=== PATIENT | female | born 1970 | race Caucasian/White ===

== ENCOUNTER 2018-05-14 08:55 | Emergency (ER) | payer MEDICARE, MEDICAID ==
[~2018-05-14] VITALS: Ht 170.2 cm; Wt 75.0 kg
[2018-05-14 09:00] VITALS: BP 135/78
[2018-05-14] MEDS ORDERED: IVER3TAB2 PO (11:47)
[2018-05-14] MEDS ORDERED: MUPI22OI30 TOP (11:47)
[2018-05-14] MEDS ORDERED: DOXY100C43 PO (11:47)
== END 2018-05-14 11:59 | disposition home or self-care (01) ==
LOC: ER 08:56
DX: S41.101A Unspecified open wound of right upper arm, initial encounter (principal); S81.801A Unspecified open wound, right lower leg, initial encounter; R21 Rash and other nonspecific skin eruption; Z88.2 Allergy status to sulfonamides; Z88.1 Allergy status to other antibiotic agents; Z79.2 Long term (current) use of antibiotics; X58.XXXA Exposure to other specified factors, initial encounter; Y93.89 Activity, other specified; Y92.89 Other specified places as the place of occurrence of the external cause; Y99.8 Other external cause status
CPT/HCPCS: 99283

== ENCOUNTER 2021-12-03 18:59 | Emergency (ER) | payer MEDICARE, OTHER, MEDICAID ==
[~2021-12-03] VITALS: Ht 170.2 cm; Wt 77.3 kg
[~2021-12-03 18:59] MED LIST: IVER3TAB2 PO
[2021-12-03 19:14] VITALS: BP 162/96
== END 2021-12-03 19:45 | disposition home or self-care (01) ==
LOC: ER 19:00
DX: Z13.89 Encounter for screening for other disorder (principal); B74 Filariasis; R09.89 Other specified symptoms and signs involving the circulatory and respiratory systems; Z88.2 Allergy status to sulfonamides; Z88.1 Allergy status to other antibiotic agents; Z79.899 Other long term (current) drug therapy
CPT/HCPCS: 99281